=== PATIENT | female | born 1980 | race Caucasian/White ===

== ENCOUNTER → 2019-02-17 13:42 | Outpatient (CLI) | payer MEDICAID ==
--- NOTE | 2019-02-18 14:43 | EC ---
PATIENT:JESSICA CHAU DATE OF SERVICE: 02/17/19 SEX: F MEDICAL RECORD: [id number] DATE OF : [birth year] LOCATION:[facility] AGE OF PATIENT: 38 ADMISSION DATE: 02/17/19 REFERRING PHYSICIAN: INTERPRETING PHYSICIAN: MAMIE MCGREGOR MD ECHOCARDIOGRAM REPORT ECHO CHARGES 4 ECHO COMPLETE Date: 02/17/19 CLINICAL DIAGNOSIS: HEART MURMUR/PALPITATIONS ECHOCARDIOGRAPHIC MEASUREMENTS (adult normal given) AC root (d.<3.7cm) 2.4 cm LV Septum d (<1.2 cm> 0.80 cm Valve Excursion 1.3 cm LV Septum (systole) 1.0 cm Left Atria (s.<4.0cm> 3.7 cm LVPW d(<1.2cm) 1.0 cm RV (d.<2.3cm) 2.5 cm LVPW (sytole) 1.1 cm LV diastole(<5.6CM) 4.1 cm MV E-F(>70mm/sec) cm LV systole 2.8 cm LVOT Diameter 1.8 cm MV exc.(>10mm) cm Est.ejection fraction (50-75%) % DOPPLER: LVIT cm/sec A 37.0 cm/sec E 75.0 cm/sec LA cm/sec RVSP 15 mmHg LVOT 88 cm/sec AOP1/2T m/s Asc. Ao 108 cm/sec RVOT 70 cm/sec RA cm/sec PA 86 cm/sec AV Gradient Peak 4.65 mmHg AV Mean 2.54 mmHg AV Area 2.3 cm MV Gradient Peak 3.20 mmHg MV Mean 1.11 mmHg MV Area cm COMMENTS: Nba Player: 2 NEERAJ POON Cmm Programmer: 3 Dr. Tay TAPE# PACS Pericardial Effusion Y DATE OF SERVICE: Adequate 2D, color flow imaging, spectral Doppler, and M-Mode No LVH. LV internal dimension is normal. Wall motion is normal. EF is greater than or equal to 55%. Aortic valve is tricuspid. No evidence of stenosis by Doppler interrogation. Left atrium is normal. Mitral valve shows no prolapse. Trivial MR. Right-sided chambers are grossly normal. Trivial TR. TRANSINT:[id number] Voice Confirmation ID: [id number] DOCUMENT ID: [id number] ECHOCARDIOGRAM REPORT [id number] HAM,JESSICA MCGREGOR,MAMIE Escobedo MD at 1443 CC: [id number] DICTATION DATE: 02/18/19 1301 WET END SUPERVISOR: 02/18/19 1336 DEP CLI 02/17/19 [facility] [address] [place] [address]
--- NOTE | 2019-02-25 08:48 | ST ---
PATIENT:JESSICA CHAU MEDICAL RECORD: [id number] SEX: F LOCATION:[facility] ORDER #: ADMISSION DATE: 02/17/19 AGE OF PATIENT: 38 REFERRING PHYSICIAN: INTERPRETING PHYSICIAN: MAMIE MCGREGOR MD DATE OF SERVICE: 02/17/2019 PROCEDURE: Treadmill stress test. DESCRIPTION OF PROCEDURE: Baseline ECG is normal. Exercised for 8 minutes 30 seconds on Ole protocol, maximum heart rate 196 beats per minute greater than 100% maximum predicted. No ECG changes for ischemia. No symptom of ischemia. Normal blood pressure response to exercise. No arrhythmias noted. Good exercise tolerance for age. TRANSINT:[id number] Voice Confirmation ID: [id number] DOCUMENT ID: [id number] MAMIE MCGREGOR MD at 0848 CC: [id number] DICTATION DATE: 02/20/19 1400 NON DESTRUCTIVE TESTING INSPECTOR: 02/20/192053 DEP CLI 02/17/19 [facility] [id number] [place] [address]
== END | disposition home or self-care (01) ==
LOC: D.HCCECHO 13:42
PROVIDERS: ATTEND Internal Medicine Interventional Cardiology
DX: R00.2 Palpitations (principal); R01.1 Cardiac murmur, unspecified